=== PATIENT | female | born 1955 | race Caucasian/White ===

== ENCOUNTER 2025-04-21 09:16 | Outpatient (CLI) | payer MEDICARE, BC ==
[~2025-04-21 09:16] MED LIST: Iopamidol 370 76% 100 ML VIAL ONE
[2025-04-21 09:54] LABS: Calc. Creatinine Clearance 0.0 mL/min (70-130)
== END 2025-04-21 09:17 | disposition home or self-care (01) ==
LOC: MADLAB 09:16
PROVIDERS: ATTEND Family Medicine
DX: R91.1 Solitary pulmonary nodule (principal)
CPT/HCPCS: 36415; 71260; 82565; Q9967